=== PATIENT | female | born 1965 | race Caucasian/White ===

== ENCOUNTER 2018-09-01 13:35 | Emergency (ER) | payer MEDICAID ==
[~2018-09-01] VITALS: Ht 147.3 cm; Wt 68.5 kg
[2018-09-01 20:21] VITALS: BP 116/58
== END 2018-09-01 21:45 | disposition left against medical advice (07) ==
LOC: ER 13:35
DX: R10.13 Epigastric pain (principal); R11.2 Nausea with vomiting, unspecified; Z53.21 Procedure and treatment not carried out due to patient leaving prior to being seen by health care provider